=== PATIENT | male | born 1975 | race Caucasian/White ===

== ENCOUNTER → 2017-07-21 | Outpatient (CLI) | payer SELFPAY ==
--- NOTE | 2017-07-21 15:58 | CT ---
HISTORY: Radiating left-sided chest pain x1 month Study: Coronary calcium score Comparison: None Technique: Noncontrast evaluation of the heart was performed utilizing prospective gating for calcium scoring. AEC was utilized. Findings: Coronary calcium score is 53 which [address] the patient between the 90 and 100 percentile with definite at least mild atherosclerotic plaque present and mild coronary narrowings likely. Atherosclerotic pl aque is most pronounced in the proximal aspect of the LAD. Surrounding soft tissues and osseous struc tures are unremarkable. IMPRESSION: Elevated coronary calcium score as above. Reported By:
== END ==
LOC: RAD 09:50
PROVIDERS: ATTEND Nurse Practitioner Family
DX: Z13.6 Encounter for screening for cardiovascular disorders (principal)